=== PATIENT | male | born 1965 | race Caucasian/White ===

== ENCOUNTER 2017-01-09 14:04 | Emergency (ER) | payer BC ==
[2017-01-09 14:11] VITALS: BP 136/88; TEMP 97.6; O2SAT 98
--- NOTE | 2017-01-09 15:17 | PD ---
Physical Exam Time Seen by Provider: 15:14 Narrative 51-year-old male presents with complaint of lower abdominal pain that started last night. Reports testicular pain and swelling that started last night and has worsened today. Has history of hernia with surgical repair. History of diverticulitis. Does not recall his last bowel movement. Denies difficulty urinating. Denies fever, vomiting. Patient seen in triage. Vital signs reviewed. Patient awaiting bed placement. Data Data Last Documented VS Vital Signs Date Time Temp Pulse Resp B/P (MAP) Pulse Ox O2 Delivery O2 Flow Rate FiO2 01/09/17 14:11 97.6 85 18 136/88 (104) 98 MDM Supervised Visit with JIHAN: Prisca Cisse Jan 09, 2017 15:17
[2017-01-09 15:49] LABS: BLOOD, URINE NEG (NEG); GLUCOSE,URINE NEG (NEG); KETONE, URINE NEG (NEG); NITRITE,URINE NEG (NEG); PH, URINE 5.5 (5.0-8.5); URINE COLOR YELLOW (YELLW/STRAW)
[2017-01-09 16:05] LABS: COMMENT (UR) CULT NOT INDICATED; CULTURE IF INDICATED CULT NOT INDICATED
--- NOTE | 2017-01-09 16:50 | RADRPT ---
EXAM DATE/TIME: 01/09/2017 16:17 [facility] COMPARISON: No previous studies available for comparison. INDICATIONS : Testicle pain. MEDICAL HISTORY : Testicle pain. SURGICAL HISTORY : Hernia repair. ENCOUNTER: Initial ACUITY: 1 day PAIN SCORE: 10/10 LOCATION: Bilateral testicles. MEASUREMENTS: RIGHT TESTICLE: 3.5 x 2.4 x 3.8cm LEFT TESTICLE: 2.7 x 2.7 x 3.2cm FINDINGS: Ultrasound examination of the testicles demonstrates normal size bilaterally. There is normal Doppler flow bilaterally without evidence of mass. The epididymis is enlarged bilaterally and heterogeneous characteristic of demise. No hydrocele is present. CONCLUSION: 1. No evidence of torsion 2. Findings characteristic of epididymitis bilaterally Ramiro Lucas MD on January 09, 2017 at 16:47 Board Certified Radiologist. This report was verified electronically.
--- NOTE | 2017-01-09 17:21 | PD ---
HPI Chief Complaint: Complaint Time Seen by Provider: 17:20 Travel History International Travel<30 days: No Contact w/Intl Traveler<30days: No Traveled to known affect area: No Allergies-Medications (Allergen,Severity, Reaction): Coded Allergies: No Known Allergies (Unverified , 01/09/17) Reported Meds & Prescriptions Reported Meds & Active Scripts Active Reported Fish Oil + D3 (Fish Oil-Cholecalciferol) 1,200-1,000 Mg-Unit Cap 1 Cap PO DAILY Folic Acid 0.8 Mg Tab 800 Mcg PO DAILY Aspirin EC (Aspirin) 81 Mg Tabdr 81 Mg PO DAILY Flomax (Tamsulosin HCl) 0.4 Mg Cap 0.4 Mg PO HS Crestor (Rosuvastatin Calcium) 10 Mg Tab 10 Mg PO HS Benicar (Olmesartan) 40 Mg Tab 40 Mg PO DAILY Data Data Last Documented VS Vital Signs Date Time Temp Pulse Resp B/P (MAP) Pulse Ox O2 Delivery O2 Flow Rate FiO2 01/09/17 14:11 97.6 85 18 136/88 (104) 98 Orders Orders Urinalysis - C+S If Indicated (01/09/17 15:17) Us Testicles W Doppler (01/09/17 ) Gc And Chlamydia Pcr (01/09/17 17:05) Complete Blood Count With Diff (01/09/17 17:38) Comprehensive Metabolic Panel (01/09/17 17:38) Lipase (01/09/17 17:38) Prothrombin Time / Inr (Pt) (01/09/17 17:38) Act Partial Throm Time (Ptt) (01/09/17 17:38) Ct Abd/Pel W Iv Contrast(Rout) (01/09/17 17:38) Iv Access Insert/Monitor (01/09/17 17:38) Ecg Monitoring (01/09/17 17:38) Oximetry (01/09/17 17:38) Oxycodone-Acetamin 5-325 Mg (Percocet (01/09/17 17:45) Iohexol 350 Inj (Omnipaque 350 Inj) (01/09/17 18:41) Labs Laboratory Tests Test 01/09/17 15:25 01/09/17 18:00 Urine Color YELLOW Urine Turbidity CLEAR Urine pH 5.5 Urine Specific [place] 1.021 Urine Protein 300 mg/dL Urine Glucose (UA) NEG mg/dL Urine Ketones NEG mg/dL Urine Occult Blood NEG Urine Nitrite NEG Urine Bilirubin NEG Urine Urobilinogen LESS THAN 2.0 MG/DL Urine Leukocyte Esterase NEG Urine WBC 1 /hpf Microscopic Urinalysis Comment CULT NOT INDICATED White Blood Count 8.8 TH/MM3 Red Blood Count 5.42 MIL/MM3 Hemoglobin 17.0 GM/DL Hematocrit 48.9 % Mean Corpuscular Volume 90.2 FL Mean Corpuscular Hemoglobin 31.3 PG Mean Corpuscular Hemoglobin Concent 34.7 % Red Cell Distribution Width 13.5 % Platelet Count 146 TH/MM3 Mean Platelet Volume 8.9 FL Neutrophils (%) (Auto) 69.4 % Lymphocytes (%) (Auto) 17.5 % Monocytes (%) (Auto) 9.2 % Eosinophils (%) (Auto) 3.6 % Basophils (%) (Auto) 0.3 % Neutrophils # (Auto) 6.1 TH/MM3 Lymphocytes # (Auto) 1.5 TH/MM3 Monocytes # (Auto) 0.8 TH/MM3 Eosinophils # (Auto) 0.3 TH/MM3 Basophils # (Auto) 0.0 TH/MM3 CBC Comment DIFF FINAL Differential Comment Prothrombin Time 11.0 SEC Prothromb Time International Ratio 1.0 RATIO Activated Partial Thromboplast Time 27.3 SEC Blood Urea Nitrogen 26 MG/DL Creatinine 1.46 MG/DL Random Glucose 99 MG/DL Total Protein 7.2 GM/DL Albumin 3.8 GM/DL Calcium Level 9.0 MG/DL Alkaline Phosphatase 66 U/L Aspartate Amino Transf (AST/SGOT) 19 U/L Alanine Aminotransferase (ALT/SGPT) 38 U/L Total Bilirubin 0.6 MG/DL Sodium Level 140 MEQ/L Potassium Level 4.2 MEQ/L Chloride Level 110 MEQ/L Carbon Dioxide Level 23.3 MEQ/L Anion Gap 7 MEQ/L Estimat Glomerular Filtration Rate 51 ML/MIN Lipase 227 U/L Moo Rios MD Jan 09, 2017 17:21
[2017-01-09] MEDS ORDERED: oxyCODONE/ACETAMINOPHEN 5 MG/325 MG TAB PO ONE (17:45)
--- NOTE | 2017-01-09 17:47 | PD ---
HPI Chief Complaint: Complaint Time Seen by Provider: 17:20 Travel History International Travel<30 days: No Contact w/Intl Traveler<30days: No Traveled to known affect area: No History of Present Illness HPI Patient is a 51-year-old male presents emergency department for evaluation of difficulty moving his bowels as well as testicular pain. The patient states he just drove down from [place] for bike week. Approximate 2 weeks ago he was admitted to the hospital there for diverticulitis flare with apparent complication but did not need surgery. He had an allergic reaction to an unknown antibiotic and admission at that time. He also states he feels like he needs to urinate all the time. Denies any fever denies any blood in the stool denies any nausea or vomiting. States he does have some pain in his scrotum as well as in his lower pelvic region. PFSH Past Medical History Narrative Medical High blood pressure, high cholesterol, MA, diverticulitis Past Surgical History Narrative Surgical AICD, bowel resection. Social History Tobacco Use: No Allergies-Medications (Allergen,Severity, Reaction): Coded Allergies: No Known Allergies (Unverified , 01/09/17) Reported Meds & Prescriptions Reported Meds & Active Scripts Active Ultram (Tramadol HCl) 50 Mg Tab 50 Mg PO Q6H PRN Doxycycline Hyclate 100 Mg Cap 100 Mg PO BID Reported Fish Oil + D3 (Fish Oil-Cholecalciferol) 1,200-1,000 Mg-Unit Cap 1 Cap PO DAILY Folic Acid 0.8 Mg Tab 800 Mcg PO DAILY Aspirin EC (Aspirin) 81 Mg Tabdr 81 Mg PO DAILY Flomax (Tamsulosin HCl) 0.4 Mg Cap 0.4 Mg PO HS Crestor (Rosuvastatin Calcium) 10 Mg Tab 10 Mg PO HS Benicar (Olmesartan) 40 Mg Tab 40 Mg PO DAILY Review of Systems Except as stated in HPI: all other systems reviewed are Neg Physical Exam Narrative GENERAL: Well-developed well-nourished no obvious distress. SKIN: Focused skin assessment warm/dry. HEAD: Atraumatic. Normocephalic. EYES: Pupils equal and round. No scleral icterus. No injection or drainage. ENT: No nasal bleeding or discharge. Mucous membranes pink and moist. NECK: Trachea midline. No JVD. CARDIOVASCULAR: Regular rate and rhythm. No murmur appreciated. RESPIRATORY: No accessory muscle use. Clear to auscultation. Breath sounds equal bilaterally. GASTROINTESTINAL: Abdomen soft, non-tender, nondistended. Hepatic and splenic margins not palpable. Genitourinary: Patient has moderate bilateral tenderness to the epididymides. Prostate is smooth and nontender. MUSCULOSKELETAL: No obvious deformities. No clubbing. No cyanosis. No edema. NEUROLOGICAL: Awake and alert. No obvious cranial nerve deficits. Motor grossly within normal limits. Normal speech. PSYCHIATRIC: Appropriate mood and affect; insight and judgment normal. Data Data Last Documented VS Vital Signs Date Time Temp Pulse Resp B/P (MAP) Pulse Ox O2 Delivery O2 Flow Rate FiO2 01/09/17 19:43 98.3 71 14 156/77 (103) 98 Orders Orders Urinalysis - C+S If Indicated (01/09/17 15:17) Us Testicles W Doppler (01/09/17 ) Gc And Chlamydia Pcr (01/09/17 17:05) Complete Blood Count With Diff (01/09/17 17:38) Comprehensive Metabolic Panel (01/09/17 17:38) Lipase (01/09/17 17:38) Prothrombin Time / Inr (Pt) (01/09/17 17:38) Act Partial Throm Time (Ptt) (01/09/17 17:38) Ct Abd/Pel W Iv Contrast(Rout) (01/09/17 17:38) Iv Access Insert/Monitor (01/09/17 17:38) Ecg Monitoring (01/09/17 17:38) Oximetry (01/09/17 17:38) Oxycodone-Acetamin 5-325 Mg (Percocet (01/09/17 17:45) Iohexol 350 Inj (Omnipaque 350 Inj) (01/09/17 18:41) Ed Discharge Order (01/09/17 19:09) Labs Laboratory Tests Test 01/09/17 15:25 01/09/17 18:00 Urine Color YELLOW Urine Turbidity CLEAR Urine pH 5.5 Urine Specific [place] 1.021 Urine Protein 300 mg/dL Urine Glucose (UA) NEG mg/dL Urine Ketones NEG mg/dL Urine Occult Blood NEG Urine Nitrite NEG Urine Bilirubin NEG Urine Urobilinogen LESS THAN 2.0 MG/DL Urine Leukocyte Esterase NEG Urine WBC 1 /hpf Microscopic Urinalysis Comment CULT NOT INDICATED Chlamydia trachomatis DNA (PCR) NOT DETECTED Neisseria gonorrhoeae DNA (PCR) NOT DETECTED White Blood Count 8.8 TH/MM3 Red Blood Count 5.42 MIL/MM3 Hemoglobin 17.0 GM/DL Hematocrit 48.9 % Mean Corpuscular Volume 90.2 FL Mean Corpuscular Hemoglobin 31.3 PG Mean Corpuscular Hemoglobin Concent 34.7 % Red Cell Distribution Width 13.5 % Platelet Count 146 TH/MM3 Mean Platelet Volume 8.9 FL Neutrophils (%) (Auto) 69.4 % Lymphocytes (%) (Auto) 17.5 % Monocytes (%) (Auto) 9.2 % Eosinophils (%) (Auto) 3.6 % Basophils (%) (Auto) 0.3 % Neutrophils # (Auto) 6.1 TH/MM3 Lymphocytes # (Auto) 1.5 TH/MM3 Monocytes # (Auto) 0.8 TH/MM3 Eosinophils # (Auto) 0.3 TH/MM3 Basophils # (Auto) 0.0 TH/MM3 CBC Comment DIFF FINAL Differential Comment Prothrombin Time 11.0 SEC Prothromb Time International Ratio 1.0 RATIO Activated Partial Thromboplast Time 27.3 SEC Blood Urea Nitrogen 26 MG/DL Creatinine 1.46 MG/DL Random Glucose 99 MG/DL Total Protein 7.2 GM/DL Albumin 3.8 GM/DL Calcium Level 9.0 MG/DL Alkaline Phosphatase 66 U/L Aspartate Amino Transf (AST/SGOT) 19 U/L Alanine Aminotransferase (ALT/SGPT) 38 U/L Total Bilirubin 0.6 MG/DL Sodium Level 140 MEQ/L Potassium Level 4.2 MEQ/L Chloride Level 110 MEQ/L Carbon Dioxide Level 23.3 MEQ/L Anion Gap 7 MEQ/L Estimat Glomerular Filtration Rate 51 ML/MIN Lipase 227 U/L [facility] Medical Decision Making Medical Screen Exam Complete: Yes Emergency Medical Condition: Yes Differential Diagnosis Diverticulitis, diverticulosis, epididymitis, torsion. Narrative Course Patient roomed emergency department, recently discharged from hospitalization for diverticulitis 2 weeks ago, they are traveling out of town and are concerned that his current symptoms may represent diverticulitis. I think is a reasonable concern CAT scan of the abdomen only shows mild diverticulitis currently. He does have epididymitis on his ultrasound bilaterally however the testes are normal. His labs are reassuring. We'll place on empiric doxycycline. Discussed need follow-up with urologist and return to ED criteria. Stable for discharge. Diagnosis Primary Impression: Epididymitis Additional Impression: Diverticulitis Qualified Codes: K57.32 - Diverticulitis of large intestine without perforation or abscess without bleeding Med/Other Pt SpecificInfo: Prescription(s) given Scripts Tramadol (Ultram) 50 Mg Tab 50 MG PO Q6H Y for PAIN, #15 TAB 0 Refills Prov: Moo Rios MD 01/09/17 Doxycycline Hyclate (Doxycycline Hyclate) 100 Mg Cap 100 MG PO BID for Infection, #28 CAP 0 Refills Prov: Moo Rios MD 01/09/17 Disposition: 01 DISCHARGE HOME Condition: Stable Moo Rios MD Jan 09, 2017 17:47
[2017-01-09] MEDS ORDERED: TAMS5CAP PO (17:54)
[2017-01-09] MEDS ORDERED: BENI40TA3 PO (17:54)
[2017-01-09] MEDS ORDERED: ASPI81TA11 PO (17:54)
[2017-01-09] MEDS ORDERED: ROSU10 PO (17:54)
[2017-01-09] MEDS ORDERED: FOLI800T PO (17:54)
[2017-01-09] MEDS ORDERED: FISHCAP4 PO (17:54)
[2017-01-09 18:14] LABS: AUTOMATED NEUTROPHIL # 6.1 TH/MM3 (1.8-7.7); BASOPHIL % 0.3 % (0.0-2.0); EOSINOPHIL # 0.3 TH/MM3 (0-0.4); EOSINOPHIL % 3.6 % (0.0-4.0); HEMATOCRIT 48.9 % (39.0-51.0); HEMO FLAGS DIFF FINAL; LYMPH % 17.5 % (9.0-44.0); LYMPHOCYTE # 1.5 TH/MM3 (1.0-4.8); MEAN CELL VOLUME 90.2 FL (80.0-100.0); MEAN CORPUSCULAR HEMOGLOBIN 31.3 PG (27.0-34.0); MEAN CORPUSCULAR HGB CONC 34.7 % (32.0-36.0); MONO % 9.2 % (0.0-8.0); NEUT % 69.4 % (16.0-70.0); PLATELET COUNT 146 TH/MM3 (150-450); RED BLOOD COUNT 5.42 MIL/MM3 (4.50-5.90); RED CELL DISTRIBUTION WIDTH 13.5 % (11.6-17.2); WHITE BLOOD COUNT 8.8 TH/MM3 (4.0-11.0)
[2017-01-09 18:23] LABS: APTT (PATIENT) 27.3 SEC (24.3-30.1)
[2017-01-09 18:30] LABS: ALT (GPT) 38 U/L (12-78); ANION GAP 7 MEQ/L (5-15); AST (GOT) 19 U/L (15-37); BICARBONATE 23.3 MEQ/L (21.0-32.0); BLOOD UREA NITROGEN 26 MG/DL (7-18); CHLORIDE 110 MEQ/L (98-107); GLOMERULAR FILTRATION RATE 51 ML/MIN (>89); POTASSIUM 4.2 MEQ/L (3.5-5.1); SODIUM (NA) 140 MEQ/L (136-145)
[2017-01-09 18:32] LABS: ALKALINE PHOSPHATASE 66 U/L (45-117); TOTAL BILIRUBIN ADULT 0.6 MG/DL (0.2-1.0)
[2017-01-09] MEDS ORDERED: IOHEXOL 350 MG/ML 10 ML VIAL (for RAD DIAG) IVCONTRAST ONE (18:41)
--- NOTE | 2017-01-09 18:57 | RADRPT ---
EXAM DATE/TIME: 01/09/2017 18:39 [facility] COMPARISON: No previous studies available for comparison. INDICATIONS : Pain lower abdomen, testicles, with swelling. IV CONTRAST: 100 cc Omnipaque 350 (iohexol) IV ORAL CONTRAST: No oral contrast ingested. RADIATION DOSE: 11.51 CTDIvol (mGy) MEDICAL HISTORY : None SURGICAL HISTORY : None. ENCOUNTER: Initial ACUITY: 1 day PAIN SCALE: 6/10 LOCATION: lower abdomen. TECHNIQUE: Volumetric scanning of the abdomen and pelvis was performed. Using automated exposure control and ad justment of the mA and/or kV according to patient size, radiation dose was kept as low as reasonably achievable to obtain optimal diagnostic quality images. DICOM format image data is available electro nically for review and comparison. FINDINGS: LOWER LUNGS: The visualized lower lungs are clear. LIVER: Homogeneous density without lesion. There is no dilation of the biliary tree. Small gallstones are n oted. SPLEEN: Normal size without lesion. PANCREAS: Within normal limits. KIDNEYS: Normal in size and shape. There is no mass, stone or hydronephrosis. ADRENAL GLANDS: Within normal limits. VASCULAR: There is no aortic aneurysm. BOWEL/MESENTERY: Multiple diverticula are identified throughout the descending and sigmoid colon. Mild paracolic stran ding is identified along the distal descending colon. There are no abnormal pericolonic fluid collect ions. Next moderate sutures identified in the distal sigmoid. ABDOMINAL WALL: Within normal limits. RETROPERITONEUM: There is no lymphadenopathy. BLADDER: No wall thickening or mass. REPRODUCTIVE: Within normal limits. INGUINAL: There is no lymphadenopathy or hernia. MUSCULOSKELETAL: Within normal limits for patient age. CONCLUSION: 1. Low grade acute diverticulitis and distal sigmoid colon. 2. Cholelithiasis 3. No other significant abnormality. Iam Crowley MD on January 09, 2017 at 18:52 Board Certified Radiologist. This report was verified electronically.
[2017-01-09] MEDS ORDERED: DOXY100C PO (19:09)
[2017-01-09] MEDS ORDERED: ULTR50TA5 PO (19:09)
[2017-01-09 19:43] VITALS: BP 156/77; TEMP 98.3
[2017-01-09 23:57] LABS: CHLAMYDIA PCR NOT DETECTED (NOT DETECT); NEISSERIA PCR NOT DETECTED (NOT DETECT)
== END 2017-01-09 19:44 | disposition home or self-care (01) ==
LOC: NEPD 14:04
DX: N45.1 Epididymitis (principal); K57.32 Diverticulitis of large intestine without perforation or abscess without bleeding
CPT/HCPCS: 74177; 76870; 80053; 81001; 83690; 85025; 85610; 85730; 87491; 87591; 93975; 99285; Q9967